=== PATIENT | male | born 1975 | race Caucasian/White ===

== ENCOUNTER → 2022-12-01 15:10 | Outpatient (REF) | payer OTHER, SELFPAY ==
--- NOTE | 2022-12-01 15:26 | CA_ITS ---
Transthoracic Echocardiogram Patient (Last, First, Middle): Sacha Aldana, Gender: Male Date of : 1975 Age: 47 Procedure Date: 12/01/2022 Procedure Type: Transthoracic Echocardiogram Location: [facility] Height: 177.8 cm Weight: 145.15 kg BSA: 2.55 m2 Heart Rate: bpm BP: 140 / 82 mmHg [place] Tender: TO Referring MD: Mina MCDERMOTT Symptoms: LOCALIZED EDEMA Study Quality: Fair/Contrast ECG Rhythm: Sinus Conclusions: - The left ventricular systolic function is low normal. The calculated ejection fraction is 54% by biplane method. - No obvious valvular pathology seen on this study. Findings Procedure Information Contrast agent, definity, is being given per protocol without apparent complications. Left Ventricle Normal left ventricular cavity size. There is normal left ventricular wall thickness. The left ventricular systolic function is low normal. The calculated ejection fraction is 54% by biplane method. There is no evidence of regional wall motion abnormalities. Diastolic function is normal for age. Right Ventricle Normal right ventricular cavity size and systolic function. Atria Both atria are normal in size. Aortic Valve There is a normal trileaflet aortic valve. There is no aortic valve stenosis. There is no aortic valve regurgitation. Mitral Valve The mitral valve appears normal. There is trace mitral valve regurgitation. There is no mitral valve stenosis. Pulmonic Valve The pulmonic valve is likely normal. Tricuspid Valve Normal tricuspid valve structure. There is trace tricuspid valve regurgitation. There is no evidence of pulmonary hypertension. Great Vessels The asc aorta is normal in size. Venous The inferior vena cava is mildly dilated and collapses greater than 50% with inspiration. Pericardium/Pleural There is no evidence of pericardial effusion. Prior Study Comparison No prior study available for comparison. Recommendations, Care & Conclusions No obvious valvular pathology seen on this study. Measurements 2D Linear Measurements IVSd: 0.98 0.6-0.9/0.6-1.0 cm LVIDd: 5.49 3.9-5.3/4.2-5.9 cm LVIDd Index: 2.15 2.4-3.2/2.2-3.1 cm/m2 LVIDs: 4.11 2.0-3.6 cm LVPWd: 0.87 0.7-1.1 cm LA Diam: 3.60 2.7-3.8/3.0-4.0 cm LAIDs Index: 1.41 1.5-2.3 cm/m2 LV Mass: 238.84 67-162/88-224 g LV Mass Index: 93.66 43-95/49-115 g/m2 LVOT Diam: 2.40 3.0+(-)1.3 cm 2D Systolic Function EF 4C: 53.50 >55% EF 2C: 55.00 >55% EF BiP: 54.40 >55% Mitral Valve MV Pk E: 0.98 MV PK A: 1.12 MV Decel Time: 129.00 E/A: 0.90 E'Lateral: 9.79 E'Medial: 8.16 E/E' Med: 12.00 E/E' Lat: 10.00 PHT: 38.00 MVA PHT: 5.79 Decel [place]: 7.57 Aortic Valve AoV Pk Nick: 1.25 AoV Mn Nick: 0.98 AoV VTI: 0.27 AoV Pk Grad: 6.00 Aov Mn Grad: 4.00 DANIS Cont.VTI: 3.77 LVOT LVOT Pk Nick: 1.02 LVOT Mn Nick: 0.76 LVOT VTI: 0.23 LVOT Pk Grad: 4.00 LVOT Mn Grad: 2.00 LVOT Diam: 2.40 LVOT Area: 4.52 Diastolic Function MV Pk E: 0.98 MV Pk A: 1.12 E/A: 0.90 E'Medial: 8.16 E/E' Med: 12.00 E' Laterial: 9.79 E/E' Lat: 10.00 Right Ventricle TAPSE (mm): 20.80 TVS' Nick: 11.20 Tricuspid Valve TR Pk Nick: 2.38 TR Pk Grad: 23.00 RA Press: 8.00 RVSP: 31.00 Great Vessels Aorta Sinus of Valsalva: 3.37 2.0-3.[address] [place]: 2.98 1.7-3.4 cm Ao Asc: 3.50 2.1-3.4 cm Updated in Other Vendor System with Status of Final Jeffery Valdez MD electronically signed on 12/02/2022 10:52:26 AM with status of Final
== END ==
LOC: HO.CARD 15:10
PROVIDERS: PCP Physician Assistant; Visit Provider Physician Assistant
DX: R60.0 Localized edema (principal)
CPT/HCPCS: 93306; Q9957